=== PATIENT | female | born 1990 | race Caucasian/White ===

== ENCOUNTER → 2021-03-28 15:07 | Outpatient (CLI) | payer OTHER, SELFPAY | PROVIDERS: Visit Provider Nurse Practitioner | DX: U07.1 COVID-19 (principal) | CPT/HCPCS: C9803; U0003; U0005 ==

== ENCOUNTER 2022-12-25 17:40 | Inpatient (IN) | payer SELFPAY ==
[2022-12-25] VITALS (23 sets, daily range): BP systolic 104–139; BP diastolic 68–82; PULSE 89–111; RESP 15–18; TEMP 36.5–37.2; O2SAT 97–100; BMI 38.7
--- NOTE | 2022-12-25 17:45 | PC.NURSE ---
Lab at BS to witness type and screen
--- NOTE | 2022-12-25 17:47 | ECG_ITS ---
APPROVED REPORT Exam: Resting ECG HR:97 bpm ECG Measurements Heart Rate 97 AXES MD 150 P 55 QRSd 82 QRS 35 QT 336 T 27 QTc 391 Conclusion SINUS RHYTHM NONSPECIFIC T-WAVE ABNORMALITY BORDERLINE ECG UNCONFIRMED REPORT Electronically signed by : Byron Celestin MD 12/26/2022 11:02:00
[2022-12-25 18:05] LABS: POC Glucose,Bedside 123 (70-110)
[2022-12-25 18:10] LABS: Basophils % 0.4 % (0.1-2.0); Eosinophils # 0.2 K/mm3 (0.0-0.4); Mean Corpuscular HGB Conc 31.4 g/dL (31.8-35.4); Mean Platelet Volume 9.9 fl (7.4-10.4); Monocytes # 0.6 K/mm3 (0.1-1.0); Monocytes % 6.5 % (1.7-9.3); Neutrophils # 6.2 K/mm3 (1.8-7.8); Neutrophils % 69.2 % (37.0-80.0); Platelet Count 482 K/mm3 (142-424); Red Blood Count 2.62 M/mm3 (4.20-5.40); Red Cell Distribution Width 17.2 % (11.5-17.5); White Blood Count 8.9 K/mm3 (4.8-10.8)
[2022-12-25 18:17] LABS: Hematocrit 18.3 % (37.0-47.0); Hemoglobin 5.8 g/dL (12.2-16.2)
[2022-12-25 18:20] LABS: Alanine Aminotransferase 53 U/L (12-78); Albumin/Globulin Ratio 1.2 (1.1-1.8); Alkaline Phosphatase 67 U/L (38-126); Anion Gap 11.6 mEq/L (5-15); Aspartate Amino Transferase 46 U/L (14-36); Bilirubin,Total 0.3 mg/dl (0.2-1.3); Blood Urea Nitrogen 10 mg/dl (7-17); Calcium 8.9 mg/dl (8.4-10.2); Carbon Dioxide 24 mmol/L (22.0-30.0); Chloride 105 mmol/L (98-107); Creatinine Clearance Estimated 236 mL/min (50-200); Estimated Glomerular Filt Rate 117 ml/min (>60); GFR (African American) 142 ML/MIN (>60); Globulin 3.3 g/dL (1.3-3.2); Glucose 109 mg/dl (74-100); Potassium 3.6 mmoL/L (3.5-5.1); Sodium 137 mmol/L (136-145); Total Protein,Serum 7.3 g/dl (6.3-8.2)
[2022-12-25 18:22] LABS: Activated Partial Thrombo Time 24.1 seconds (22.8-30.6); INR 1.02 (0.9-1.1)
--- NOTE | 2022-12-25 18:22 | PC.NURSE ---
on the phone with OB
--- NOTE | 2022-12-25 18:34 | HMH.EDGENADL ---
Discharge Plan Disposition Patient Disposition: Home, Self-Care Chief Complaint: Vaginal Bleeding Clinical Impressions Clinical Impression: Menorrhagia, Symptomatic anemia Discharge ED Provider: Rafael Akers General Adult HPI General Chief complaint: Vaginal Bleeding Stated complaint: abd pain and vaginal bleeding, light headed Time Seen by Provider: 12/25/22 17:46 Mode of Arrival: Wheelchair Source of Information: Patient Limitations: No Limitations Description of Symptoms (Recalled from ER Triage Doc. by RN): Presents to ED with c/o menstruation for a year . Patient reports she is filling a mentrual pad in 30 minutes and passing clots for a week. Patient reports lightheadedness and near syncopal episodes x few days. 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 History of Present Illness HPI narrative: 32-year-old female with history of menorrhagia chronically presenting with vaginal hemorrhage. Patient states has been bleeding on and off for the better part of a year. Started bleeding more heavily about 7 to 10 days prior to arrival. Since that time, she has been saturating 1-2 pads an hour. Feels as if she is going to pass out when she stands up, appears pale, short of breath with exertion, still currently bleeding. Has not seen OB in a few years, not currently on anticoagulation or contraceptive. Related Data Home Medications Medication Instructions Recorded Confirmed No Known Home Medications 04/11/19 04/11/19 Allergies Allergy/AdvReac Type Severity Reaction Status Date / Time Penicillins Allergy Mild Verified 07/12/18 14:43 Sulfa (Sulfonamide Allergy Mild Verified 07/12/18 14:43 Antibiotics) [facility] Disclaimer: The information contained in this section may have been updated after the patient was seen, as this information can be updated by other users. Social History Smoking Status: Current every day smoker tobacco type: cigarettes packs per day: 1 second hand exposure: Yes alcohol intake: never substance use type: denies use current occupational status: unemployed Travel in the last 8 weeks: None housing: house ROS Obtained: Yes All systems reviewed & no additional complaints except as documented Physical Exam General General appearance: alert, in no apparent distress and obese Head Head exam: atraumatic and normocephalic Eye Eye exam: Present normal appearance, PERRL, EOMI and other (Conjunctival pallor) ENT ENT exam: Present mucous membranes moist Neck Neck exam: Present normal inspection, full ROM and trachea midline Respiratory Respiratory exam: Present normal lung sounds bilaterally; Absent respiratory distress, wheezes, stridor, accessory muscle use or prolonged expiratory phase Cardiovascular Cardiovascular exam: Present normal rhythm and tachycardia Abdominal Exam Abdominal exam: Present soft; Absent distention, tenderness, guarding, rebound, rigidity or normal bowel sounds External exam: Present other (Deferred by patient, given patient saturating multiple tampons and clenching together to keep from bleeding out ) Extremities Exam Extremities exam: Absent edema Neurological Exam Neurological exam: Present alert, oriented X3, CN II-XII intact and normal gait; Absent motor sensory deficit Skin Skin exam: Present warm, dry and pallor; Absent diaphoresis or erythema Medical Decision Making Medical Records Medical records reviewed: Yes I reviewed the patient's medical records. Matthew Inquiry Pt receiving controlled substance: No Matthew was queried for this patient: No Vital Signs: 12/25/22 17:42 12/25/22 18:00 Temperature 98.2 F Temperature Source Oral Pulse Rate 100 H Pulse Rate [Right] 92 H Respiratory Rate 16 18 Blood Pressure 104/69 L Blood Pressure [Right Arm] 116/71 Blood Pressure Mean 82 Blood Pressure Mean [Right Arm] 86 Blood Pressure Source [Right Arm] Automatic Cuff Blood Pressure Position [Right Arm] Sitting 02 Sat by Pu
--- NOTE | 2022-12-25 18:49 | PC.NURSE ---
Rounded on patient nothing needed at this time. Call light within reach of patient.
[2022-12-25 18:58] LABS: HCG,Quantitative < 2 mIU/ml (0-5.42)
--- NOTE | 2022-12-25 18:59 | PC.NURSE ---
lab called; first unit of blood ready
--- NOTE | 2022-12-25 18:59 | PC.NURSE ---
Lab called; 1st unit of blood ready.
--- NOTE | 2022-12-25 19:06 | PC.NURSE ---
Received blood from lab
--- NOTE | 2022-12-25 19:16 | PC.NURSE ---
1st unit of RBC transfusion starting at 75mL/hour
--- NOTE | 2022-12-25 19:36 | PC.NURSE ---
Report given to Yung CARRANZA
--- NOTE | 2022-12-25 19:50 | PC.NURSE ---
Addendum entered by Floresita Prater RN 12/25/22 20:15: RBC infusion infusing at 75ml/hr upon transfer Original Note: Yung CARRANZA took over administration of 1st unit of blood.
--- NOTE | 2022-12-25 19:50 | PC.NURSE ---
Assuming all patient care at this time. Patient is appropriate and cooperative and will be transported to the OB unit. Patient's skin is warm, pale and dry. Patient is awake and alert. Patient tolerating blood transfusion well.
--- NOTE | 2022-12-25 19:50 | PC.NURSE ---
Pt to OB with OB staff.
--- NOTE | 2022-12-25 19:52 | PC.NURSE ---
1st unit of blood continued by Yung CARRANZA
--- NOTE | 2022-12-25 20:08 | PC.NURSE ---
Patient arrived to the unit at 1954 accompanied by 1 RN and 1 SRNA, patient transported from ER to OB unit via stretcher, blood unit is infusing.
[2022-12-26] VITALS (20 sets, daily range): BP systolic 109–139; BP diastolic 56–85; PULSE 69–102; RESP 15–18; TEMP 36.8–37.2; O2SAT 97–99; BMI 40.5
[2022-12-26 02:54] LABS: Hematocrit 22.6 % (37.0-47.0)
[2022-12-26 02:58] LABS: Hemoglobin 7.7 g/dL (12.2-16.2)
--- NOTE | 2022-12-26 05:19 | PC.NURSE ---
Patient remains awake, alert, appropriate and cooperative this shift. Lung sounds are clear throughout bilaterally. Heart rate has come down to the 80s. Patient denies any shortness of breath or chest pain. Patients abdomen is soft and non tender upon palpation, bowel sounds are active in all quadrants. Patient has only changed her feminine pad x2, thus far. Patient reports improvement in vaginal bleeding. Patient plan of care will continue to remain on the course.
--- NOTE | 2022-12-26 08:09 | PC.NURSE ---
0800: Spoke with Dr Jarvis, notified of H/H post transfusion. Also notified Md of pt socioeconomic status and lack of transportation. Orders to transfuse 1 unit of blood this am and he will be in to assess patient this morning. R/V. 0805: Pt updated on POC, agreeable.
--- NOTE | 2022-12-26 09:00 | EXP.HP ---
History of Present Illness *Admission Date: 12/25/22 *Reason for visit:: Menorrhagia, anemia *History of present illness: 32-year-old female with history of menorrhagia chronically presenting with vaginal hemorrhage. Patient states has been bleeding on and off for the better part of a year. She was last seen by Dr. Hilliard in 2019. She has not been followed for this since then. Started bleeding more heavily about 7 to 10 days prior to arrival. Since that time, she has been saturating 1-2 pads an hour. Feels as if she is going to pass out when she stands up, appears pale, short of breath with exertion, still currently bleeding. Has not seen OB in a few years, not currently on anticoagulation or contraceptive. [facility] Disclaimer: The information contained in this section may have been updated after the patient was seen, as this information can be updated by other users. Medical History PCOS (polycystic ovarian syndrome) Surgical History H/O wisdom tooth extraction Family History Family history of pancreatitis Mother Breast cancer Grandmother Family history of hypertension Mother Family history of myocardial infarction Father Lung cancer Grandmother Social History Smoking Status: Current every day smoker tobacco type: cigarettes packs per day: 1 years smoked: 13 second hand exposure: Yes alcohol intake: never substance use type: marijuana current occupational status: unemployed Travel in the last 8 weeks: None adopted: No household members: family housing: house marital status: single do you feel safe at home: Yes victim of physical abuse: No victim of emotional abuse: No victim of sexual abuse: No Review of Systems Review of Systems Review of systems:: pertinent systems reviewed and negative unless documented below Meds Home Medications and Allergies Home Medications Medication Instructions Recorded Confirmed Type No Known Home Medications 04/11/19 12/26/22 History New Prescriptions to Start Prescriptions: Allergies Allergy/AdvReac Type Severity Reaction Status Date / Time Penicillins Allergy Mild Verified 07/12/18 14:43 Sulfa (Sulfonamide Allergy Mild Verified 07/12/18 14:43 Antibiotics) Exam Data for Last 24 hours Vital signs and Labs for Last 24 Hours: Temp Pulse Resp BP Pulse Ox O2 Del Method 98.5 F 86 18 133/85 98 Room Air 12/26/22 08:00 12/26/22 08:00 12/26/22 08:00 12/26/22 08:00 12/26/22 08:00 12/26/22 08:00 Laboratory Results - last 24 hr 12/25/22 17:52: POC Glucose 123 H 12/25/22 17:56: WBC 8.9, RBC 2.62 L, Hgb 5.8 L*, Hct 18.3 L*, MCV 70.0 L, MCH 22.0 L, MCHC 31.4 L, RDW 17.2, Plt Count 482 H, MPV 9.9, Neut % (Auto) 69.2, Lymph % (Auto) 22.0, [place] % (Auto) 6.5, Eos % (Auto) 2.0, Baso % (Auto) 0.4, Neut # (Auto) 6.2, Lymph # (Auto) 2.0, [place] # (Auto) 0.6, Eos # (Auto) 0.2, Baso # (Auto) 0.0, PT 11.0, INR 1.02, APTT 24.1, Sodium 137, Potassium 3.6, Chloride 105, Carbon Dioxide 24, Anion Gap 11.6, BUN 10, Creatinine 0.60, Estimated Creat Clear 236, Estimated GFR 117, Est GFR ( Amer) 142, Glucose 109 H, Calcium 8.9, Total Bilirubin 0.3, AST 46 H, ALT 53, Alkaline Phosphatase 67, Total Protein 7.3, Albumin 4.0, Globulin 3.3 H, Albumin/Globulin Ratio 1.2, HCG, Quant < 2, Blood Type A Positive, Blood Type Confirm A Positive, Antibody Screen Negative, Crossmatch (AHG) See Detail 12/26/22 02:45: Hgb 7.7 L D, Hct 22.6 L I & O for Last 24 hours: Intake & Output 12/23/22 12/24/22 12/25/22 12/26/22 11:59 11:59 11:59 11:59 Intake Total 750 / 750 Output Total 1150 / 1150 Balance -400 / -400 Weight 252 lb 2 oz Constitutional Constitutional: no acute distress and obese *Routine HEENT Exam Head: Pr
--- NOTE | 2022-12-26 09:08 | US_ITS ---
PROCEDURE INFORMATION: Exam: US Duplex Artery and Vein of the Abdominal and/or Reproductive Organs. Complete Ovaries Exam date and time: 12/26/2022 12:50 PM Age: 32 years old Clinical indication: Other: Excessive bleeding; Additional info: Excessive vaginal bleeding, menstrual hemorrhage TECHNIQUE: Imaging protocol: Real-time duplex ultrasound scan of the arterial and venous flow with color Doppler flow and spectral waveform analysis with image documentation. Complete duplex exam focused on the ovaries. Duplex exam was performed to evaluate for torsion and other vascular conditions. Total images: 841 COMPARISON: HIPRTWO CT hip RT wo con 02/14/2018 4:53 PM FINDINGS: Right ovary/adnexa: Blood flow is demonstrated to the right ovary. Left ovary/adnexa: Blood flow is demonstrated to the left ovary. IMPRESSION: No evidence of ovarian torsion. PROCEDURE INFORMATION: Exam: US Pelvis, Transvaginal Exam date and time: 12/26/2022 12:50 PM Age: 32 years old Clinical indication: Other: Excessive bleeding; Additional info: Excessive vaginal bleeding, menstrual hemorrhage LABS AND CLINICAL REPORTS: Last menstrual period start date: 12/19/2022 TECHNIQUE: Imaging protocol: Real-time transvaginal pelvic ultrasound with image documentation. Transvaginal imaging was used for better evaluation of the endometrium, adnexa, and/or cervix. COMPARISON: HIPRTWO CT hip RT wo con 02/14/2018 4:53 PM FINDINGS: Uterus: Uterus measures 11.06 cm x 8.3 cm x 5.53 cm. Endometrium is thickened at 3.7 cm. Right ovary/adnexa: Right ovary measures 2.68 cm x 3.29 cm x 2.16 cm. Right ovarian volume is 9.97 mL. No adnexal masses. Left ovary/adnexa: Left ovary measures 3.95 cm x 3.77 cm x 2.49 cm. Left ovarian volume is 19.41 mL. Intraperitoneal space: No evidence of free fluid. IMPRESSION: 1. Endometrium is thickened at 3.7 cm. 2. No evidence of free fluid. 3. No adnexal masses.
--- NOTE | 2022-12-26 09:13 | HMH.PHAINT1 ---
Pharmacy Intervention Comments: MEDICATION RECONCILIATION COMPLETE USING EXTERNAL PHARMACY FILL HISTORY (NO KNOWN HOME MEDICATIONS).
[2022-12-26 13:41] LABS: Hematocrit 26.2 % (37.0-47.0)
--- NOTE | 2022-12-26 13:44 | PC.NURSE ---
1250- pt off floor to radiology for transvaginal ultrasound 1323-pt back to room from radiology, lab at bedside for ordered lab draw.
[2022-12-26 13:53] LABS: Hemoglobin 9.1 g/dL (12.2-16.2)
--- NOTE | 2022-12-26 14:03 | PC.NURSE ---
Dr Jarvis updated on pt labs and status. Pt reports she has passed a few more clots. This nurse visualized a half dollar clot in toilet. Md will be here to speak with pt in 45 min-1hour.
--- NOTE | 2022-12-26 14:40 | EXP.ACUTE.PN ---
Subjective *Date: 12/26/22 *Time: 14:40 Interval history: She continues to have some bleeding. She says that its coming out like liquid. Her hemoglobin is 9.1 after 3 units of blood. Ultrasound shows a grossly thickened endometrium at 3.9 cm. We will keep her for now, we will start some IV estrogen to stabilize the endometrium. We will plan to do a D&C in 48 hours. Medical Exam Vital signs and Labs for Last 24 Hours: Vital Signs Temp Pulse Pulse Resp BP BP Pulse Ox 12/26/22 12:40 98.5 F 79 18 115/68 99 12/26/22 12:19 12/26/22 11:40 98.4 F 79 18 117/62 98 12/26/22 10:00 12/26/22 10:40 98.5 F 77 18 111/56 L 99 12/26/22 10:25 98.5 F 69 18 118/63 99 12/26/22 10:10 98.5 F 82 18 116/63 99 12/26/22 09:55 98.8 F 86 18 124/63 99 12/26/22 09:50 98.4 F 86 18 119/70 99 12/26/22 09:45 98.6 F 93 H 18 114/71 98 12/26/22 09:25 98.5 F 84 18 119/66 99 12/26/22 09:40 98.5 F 81 18 109/58 L 99 12/26/22 09:39 98.5 F 84 18 119/66 99 12/26/22 08:00 98.5 F 86 18 133/85 98 12/26/22 08:00 12/26/22 07:50 98 12/26/22 06:28 12/26/22 05:18 12/26/22 04:29 98.9 F 88 17 134/71 98 12/26/22 04:29 12/26/22 03:26 12/26/22 02:46 12/26/22 02:40 98.9 F 97 H 16 135/69 99 12/26/22 01:40 98.8 F 101 H 17 139/66 98 12/26/22 01:14 12/26/22 01:10 98.4 F 93 H 15 139/65 97 12/26/22 00:13 12/26/22 00:10 98.3 F 102 H 16 135/65 99 12/25/22 23:55 98.7 F 97 H 15 129/70 98 12/25/22 23:40 98.6 F 95 H 17 131/82 97 12/25/22 23:25 98.4 F 103 H 15 128/72 100 12/25/22 23:20 98.9 F 107 H 15 135/74 98 12/25/22 23:20 12/25/22 22:20 12/25/22 23:15 99.0 F 110 H 15 136/72 97 12/25/22 23:10 98.7 F 111 H 17 137/69 100 12/25/22 23:01 98.7 F 109 H 17 136/71 98 12/25/22 22:40 98.6 F 104 H 16 133/77 100 12/25/22 22:16 98.4 F 111 H 18 139/68 100 12/25/22 21:16 98.4 F 102 H 17 130/74 100 12/25/22 21:15 12/25/22 20:16 98.4 F 89 18 128/73 97 12/25/22 20:01 97.7 F 95 H 17 128/71 98 12/25/22 20:20 12/25/22 20:51 98 12/25/22 19:56 98.4 F 100 H 17 131/81 12/25/22 19:46 98.4 F 100 H 17 131/81 100 12/25/22 19:31 98.2 F 93 H 18 113/73 100 12/25/22 19:26 98.2 F 95 H 18 113/73 100 12/25/22 19:21 98.5 F 96 H 18 118/71 100 12/25/22 19:16 98.7 F 98 H 18 117/73 100 12/25/22 19:11 98.7 F 97 H 18 108/73 L 99 12/25/22 18:49 97 H 18 117/73 100 12/25/22 18:00 100 H 18 104/69 L 100 12/25/22 17:42 98.2 F 92 H 16 116/71 100 O2 Del Method 12/26/22 12:40 12/26/22 12:19 Room Air 12/26/22 11:40 12/26/22 10:00 Room Air 12/26/22 10:40 12/26/22 10:25 12/26/22 10:10 12/26/22 09:55 12/26/22 09:50 12/26/22 09:45 12/26/22 09:25 12/26/22 09:40 12/26/22 09:39 12/26/22 08:00 Room Air 12/26/22 08:00 Room Air 12/26/22 07:50 Room Air 12/26/22 06:28 Room Air 12/26/22 05:18 Room Air 12/26/22 04:29 Room Air 12/26/22 04:29 Room Air 12/26/22 03:26 Room Air 12/26/22 02:46 Room Air 12/26/22 02:40 12/26/22 01:40 12/26/22 01:14 Room Air 12/26/22 01:10 12/26/22 00:13 Room Air 12/26/22 00:10 12/25/22 23:55 12/25/22 23:40 12/25/22 23:25 12/25/22 23:20 12/25/22 23:20 Room Air 12/25/22 22:20 Room Air 12/25/22 23:15 12/25/22 23:10 12/25/22 23:01 12/25/22 22:40 12/25/22 22:16 12/25/22 21:16 12/25/22 21:15 Room Air 12/25/22 20:16 12/25/22 20:01 12/25/22 20:20 Room Air 12/25/22 20:51 Room Air 12/25/22 19:56 Room Air 12/25/22 19:46 12/25/22 19:31 12/25/22 19:26 12/25/22 19:21 12/25/22 19:16 12/25/22 19:11 12/25/22 18:49 Room Air 12/25/22 18:00 12/25/22 17:42 Room Air Intake and Output 12/26/22
--- NOTE | 2022-12-26 15:58 | PC.NURSE ---
Pt admits to increased bleeding. She states it's just coming out like pee when I go to the bathroom . Md aware. Ordered estrogen given IV to help stabilize endometrium. Pt agreeable and understands POC. Pt has rested well this shift with no c/o pain. Lungs remain CTA, BS active x4. S.o remains at bedside.
[2022-12-27 05:19] VITALS: BP 135/65; PULSE 89; RESP 15; TEMP 37; O2SAT 98
--- NOTE | 2022-12-27 05:21 | PC.NURSE ---
Patient has rested comfortably this shift. Patient is alert and oriented x4. Patient remains having scant to small amount of vaginal bleeding. Patient has denied any pain. Patient lung sound remain clear bilaterally throughout. Bowl sounds are active x4.
[2022-12-27 05:24] VITALS: BMI 405483.8
[2022-12-27 07:42] LABS: Basophils # 0.1 K/mm3 (0-0.2); Basophils % 0.4 % (0.1-2.0); Eosinophils # 0.5 K/mm3 (0.0-0.4); Hematocrit 26.9 % (37.0-47.0); Hemoglobin 9.1 g/dL (12.2-16.2); Lymphocytes # 2.6 K/mm3 (0.7-4.5); Lymphocytes % 17.2 % (10-50); Mean Corpuscular HGB Conc 33.9 g/dL (31.8-35.4); Mean Corpuscular Hemoglobin 26.1 pg (27.0-31.2); Mean Platelet Volume 9.3 fl (7.4-10.4); Monocytes # 0.7 K/mm3 (0.1-1.0); Monocytes % 4.9 % (1.7-9.3); Neutrophils # 11.2 K/mm3 (1.8-7.8); Neutrophils % 74.4 % (37.0-80.0); Platelet Count 406 K/mm3 (142-424); Red Blood Count 3.49 M/mm3 (4.20-5.40); Red Cell Distribution Width 19.2 % (11.5-17.5)
[2022-12-27 08:05] LABS: MANUAL DIFFERENTIAL MANUAL DIFFERENTIAL (MANUAL DIFF)
[2022-12-27 08:30] VITALS: BP 137/73; PULSE 83; RESP 18; TEMP 36.8; O2SAT 99
[2022-12-27 09:12] LABS: Eosinophils % 3 % (0-3); Lymphocytes % 12 % (10-50); Monocytes % 4 % (2-9); Neutrophils % 81 % (42-76); Total Cells Counted 100
[2022-12-27 09:13] LABS: Platelet Estimate Normal; RBC Morphology Normal
--- NOTE | 2022-12-27 13:21 | EXP.ACUTE.PN ---
Subjective *Date: 12/27/22 *Time: 13:21 Interval history: She is doing much better today. Her bleeding has settled. She has been receiving IV estrogen. Her hemoglobin has remained stable. She has received a total of 3 units of packed red blood cells. She denies any pain or discomfort. Medical Exam Vital signs and Labs for Last 24 Hours: Vital Signs Temp Pulse Resp BP Pulse Ox O2 Del Method 12/27/22 09:38 Room Air 12/27/22 08:30 Room Air 12/27/22 08:30 98.3 F 83 18 137/73 99 Room Air 12/27/22 07:02 Room Air 12/27/22 06:15 Room Air 12/27/22 05:19 Room Air 12/27/22 05:19 98.6 F 89 15 135/65 98 Room Air 12/27/22 04:31 Room Air 12/27/22 03:44 Room Air 12/27/22 02:50 Room Air 12/27/22 01:21 Room Air 12/27/22 00:20 Room Air 12/26/22 23:13 Room Air 12/26/22 22:12 Room Air 12/26/22 21:30 Room Air 12/26/22 20:19 98.9 F 90 17 132/73 98 Room Air 12/26/22 20:30 Room Air 12/26/22 20:22 98 Room Air 12/26/22 19:42 Room Air 12/26/22 18:30 Room Air 12/26/22 17:00 Room Air 12/26/22 14:10 Room Air Intake and Output 12/27/22 12/27/22 12/27/22 03:59 11:59 19:59 Other: Weight 251 lb 4 oz Laboratory Results - last 24 hr 12/25/22 17:56: Crossmatch (AHG) See Detail 12/26/22 13:30: Hgb 9.1 L D, Hct 26.2 L 12/27/22 07:28: WBC 15.0 H D, RBC 3.49 L D, Hgb 9.1 L, Hct 26.9 L, MCV 77.0 L, MCH 26.1 L, MCHC 33.9, RDW 19.2 H, Plt Count 406, MPV 9.3, Neut % (Auto) 74.4, Lymph % (Auto) 17.2, [place] % (Auto) 4.9, Eos % (Auto) 3.0, Baso % (Auto) 0.4, Neut # (Auto) 11.2 H, Lymph # (Auto) 2.6, [place] # (Auto) 0.7, Eos # (Auto) 0.5 H, Baso # (Auto) 0.1, Total Counted 100, Neutrophils % (Manual) 81 H, Lymphocytes % (Manual) 12, Monocytes % (Manual) 4, Eosinophils % (Manual) 3, Platelet Estimate Normal, RBC Morphology Normal I & O for Labs for Last 24 Hours: Intake & Output 12/25/22 12/26/22 12/27/22 12/28/22 11:59 11:59 11:59 11:59 Intake Total 1000 / 1000 Output Total 1550 / 1550 500 / 500 Balance -550 / -550 -500 / -500 Weight 252 lb 2 oz 251 lb 4 oz Head: Present atraumatic ENT: Present normal exam Neck: Present normal inspection Respiratory: Present normal respiratory effort; Absent accessory muscle use Assessment and Plan *Assessment and plan (1) Endometrial thickening on ultrasound: Status: Acute Category: Medical Code(s): R93.89 - Abnormal findings on diagnostic imaging of other specified body structures (2) Uterine hypertrophy: Status: Acute Category: Medical Code(s): N85.2 - Hypertrophy of uterus (3) Vaginal bleeding: Status: Acute Category: Medical Code(s): N93.9 - Abnormal uterine and vaginal bleeding, unspecified (4) Menorrhagia: Status: Acute Qualifiers: Menorrhagia type: with irregular cycle Qualified Code(s): N92.1 - Excessive and frequent menstruation with irregular cycle Category: Medical Code(s): N92.0 - Excessive and frequent menstruation with regular cycle (5) Symptomatic anemia: Status: Acute Category: Medical Code(s): D64.9 - Anemia, unspecified Plan We will plan to perform a hysteroscopy, D&C and MyoSure tomorrow. We discussed the risks of surgery that includes bleeding, infection and perforation. All questions were answered and consents were signed. She will remain n.p.o. after midnight tonight.
[2022-12-27 16:00] VITALS: BP 118/66; PULSE 82; RESP 18; TEMP 37.2; O2SAT 99
--- NOTE | 2022-12-27 18:05 | PC.NURSE ---
1600- Pt has rested well this shift with no c/o pain or increased bleeding. Reports vaginal bleeding as scant with no clots. Lungs remain CTA, bs active x4 quadrants. No edema noted. Dr Jarvis and this RN discussed risks/benefits of scheduled procedure tomorrow and consents signed. Pt agreeable to POC and has no questions.
--- NOTE | 2022-12-27 19:05 | PC.NURSE ---
Assuming all patient care at this time. Patient is awake and alert, watching TV. Patient respirations are equal and unlabored. Skin is intact, warm and pink. Patient denies any pain at this time.
[2022-12-27 20:14] VITALS: BP 130/74; PULSE 82; RESP 17; TEMP 36.9; O2SAT 97
[2022-12-27 20:15] VITALS: O2SAT 97
[2022-12-28] VITALS (15 sets, daily range): BP systolic 109–155; BP diastolic 67–97; PULSE 82–110; RESP 14–18; TEMP 36.4–36.9; O2SAT 96–99; BMI 406874.6
--- NOTE | 2022-12-28 04:47 | PC.NURSE ---
Patient remains alert and oriented x4. She has rested fair throughout the night. Patient lung sounds are clear bilaterally throughout. Patient bowel sounds are active in all 4 quadrants. Vaginal bleeding has remained scant to small amount of bleeding. Patient denies any pain.
[2022-12-28 07:46] LABS: Chloride 108 mmol/L (98-107); Potassium 3.9 mmoL/L (3.5-5.1); Sodium 138 mmol/L (136-145)
[2022-12-28 07:49] LABS: Anion Gap 9.9 mEq/L (5-15); Blood Urea Nitrogen 9 mg/dl (7-17); Calcium 8.3 mg/dl (8.4-10.2); Carbon Dioxide 24 mmol/L (22.0-30.0); Creatinine Clearance Estimated 248 mL/min (50-200); Estimated Glomerular Filt Rate 117 ml/min (>60); GFR (African American) 142 ML/MIN (>60); Glucose 101 mg/dl (74-100)
[2022-12-28 08:40] LABS: Basophils # 0.1 K/mm3 (0-0.2); Basophils % 0.5 % (0.1-2.0); Eosinophils # 0.4 K/mm3 (0.0-0.4); Eosinophils % 2.9 % (0.1-12.0); Hematocrit 27.4 % (37.0-47.0); Hemoglobin 9.3 g/dL (12.2-16.2); Mean Corpuscular HGB Conc 33.8 g/dL (31.8-35.4); Mean Corpuscular Hemoglobin 25.9 pg (27.0-31.2); Mean Corpuscular Volume 76.5 fl (81-99); Mean Platelet Volume 9.5 fl (7.4-10.4); Monocytes # 0.7 K/mm3 (0.1-1.0); Monocytes % 5.5 % (1.7-9.3); Neutrophils # 9.3 K/mm3 (1.8-7.8); Neutrophils % 69.2 % (37.0-80.0); Platelet Count 399 K/mm3 (142-424); Red Blood Count 3.59 M/mm3 (4.20-5.40); Red Cell Distribution Width 19.7 % (11.5-17.5); White Blood Count 13.5 K/mm3 (4.8-10.8)
--- NOTE | 2022-12-28 09:15 | PC.NURSE ---
Pepcid 20mg IV given for heartburn.
--- NOTE | 2022-12-28 10:09 | EXP.ACUTE.PN ---
Subjective *Date: 12/28/22 *Time: 10:09 Interval history: She is doing well this morning. Her bleeding has mostly settled. She denies any shortness of breath or calf tenderness. Medical Exam Vital signs and Labs for Last 24 Hours: Vital Signs Temp Pulse Resp BP Pulse Ox O2 Del Method O2 Flow Rate 12/28/22 08:00 Room Air 99 12/28/22 08:10 98.4 F 82 18 143/83 H 99 Room Air 12/28/22 08:30 99 Room Air 12/28/22 06:09 Room Air 12/28/22 05:00 Room Air 12/28/22 04:46 Room Air 12/28/22 04:46 97.9 F 85 14 109/67 L 98 Room Air 12/28/22 03:07 Room Air 12/28/22 02:33 Room Air 12/28/22 01:12 Room Air 12/28/22 00:00 Room Air 12/27/22 23:33 Room Air 12/27/22 22:34 Room Air 12/27/22 21:33 Room Air 12/27/22 20:15 97 Room Air 12/27/22 20:15 Room Air 12/27/22 19:20 Room Air 12/27/22 20:14 98.4 F 82 17 130/74 97 Room Air 12/27/22 17:00 Room Air 12/27/22 18:07 Room Air 12/27/22 16:00 99.0 F 82 18 118/66 99 Room Air 12/27/22 13:30 Room Air 12/27/22 11:30 Room Air Intake and Output 12/27/22 12/28/22 12/28/22 19:59 03:59 11:59 Output Total 300 / 300 Balance -300 / -300 Output: Output, Urine Amount 300 / 300 Other: Number of Unmeasured Voids 1 1 Weight 252 lb 1.789 oz Patient Weight 12/28/22 11:59 Weight 252 lb 1.789 oz Laboratory Results - last 24 hr 12/28/22 07:12: WBC 13.5 H, RBC 3.59 L, Hgb 9.3 L, Hct 27.4 L, MCV 76.5 L, MCH 25.9 L, MCHC 33.8, RDW 19.7 H, Plt Count 399, MPV 9.5, Neut % (Auto) 69.2, Lymph % (Auto) 22.0, [place] % (Auto) 5.5, Eos % (Auto) 2.9, Baso % (Auto) 0.5, Neut # (Auto) 9.3 H, Lymph # (Auto) 3.0, [place] # (Auto) 0.7, Eos # (Auto) 0.4, Baso # (Auto) 0.1, Sodium 138, Potassium 3.9, Chloride 108 H, Carbon Dioxide 24, Anion Gap 9.9, BUN 9, Creatinine 0.60, Estimated Creat Clear 248, Estimated GFR 117, Est GFR ( Amer) 142, Glucose 101 H, Calcium 8.3 L I & O for Labs for Last 24 Hours: Intake & Output 12/25/22 12/26/22 12/27/22 12/28/22 11:59 11:59 11:59 11:59 Intake Total 1000 / 1000 Output Total 1550 / 1550 1300 / 1300 300 / 300 Balance -550 / -550 -1300 / -1300 -300 / -300 Weight 252 lb 2 oz 251 lb 4 oz 252 lb 1.789 oz Constitutional: Present no acute distress and obese Head: Present normocephalic Neck: Present normal inspection Respiratory: Present normal respiratory effort; Absent accessory muscle use Assessment and Plan *Assessment and plan (1) Endometrial thickening on ultrasound: Status: Acute Category: Medical Code(s): R93.89 - Abnormal findings on diagnostic imaging of other specified body structures (2) Uterine hypertrophy: Status: Acute Category: Medical Code(s): N85.2 - Hypertrophy of uterus (3) Menorrhagia: Status: Acute Qualifiers: Menorrhagia type: with irregular cycle Qualified Code(s): N92.1 - Excessive and frequent menstruation with irregular cycle Category: Medical Code(s): N92.0 - Excessive and frequent menstruation with regular cycle (4) Symptomatic anemia: Status: Acute Category: Medical Code(s): D64.9 - Anemia, unspecified Plan She is scheduled today for a hysteroscopy D&C.
--- NOTE | 2022-12-28 11:44 | PC.NURSE ---
Pt taken to pre-op via bed and staff x2.
--- NOTE | 2022-12-28 12:10 | P.PNANES_ITS ---
[facility] Disclaimer: The information contained in this section may have been updated after the patient was seen, as this information can be updated by other users. Medical History PCOS (polycystic ovarian syndrome) Surgical History H/O wisdom tooth extraction Family History Family history of pancreatitis Mother Breast cancer Grandmother Family history of hypertension Mother Family history of myocardial infarction Father Lung cancer Grandmother Social History Smoking Status: Current every day smoker tobacco type: cigarettes packs per day: 1 years smoked: 13 second hand exposure: Yes alcohol intake: never substance use type: marijuana current occupational status: unemployed Travel in the last 8 weeks: None adopted: No household members: family housing: house marital status: single do you feel safe at home: Yes victim of physical abuse: No victim of emotional abuse: No victim of sexual abuse: No [facility] Anesthesia Checklist Patient Identification Patient Identification: Arm Band and Verbal (Name & ) Structural Data Admitted From: Inpatient Planned Operative Procedure/s: Hysteroscopy, D&C, Novasure Consent for Planned Operative Procedure(s) Verified: Yes Verified Documents: Surgical Consent and History and Physical NPO Status Verified Time NPO: 21:00 Chart Verification Results Verified: CBC, BMP, Type and Screen, ECG and HCG Additional verifications Patient : No Anesthesia Reactions: No Hx Blood Transfusions: Yes Blood Transfusion Reaction: No Cephalosporin Allergy: No Cardiovascular Assessment Heart Sounds: S1 & S2 Pulse Rhythm: Irregular Peripheral Edema: No Airway Assessment Mallampati Score:: Class II C-Spine Mobility Assessed: Yes TMJ Mobility Assessed: Yes Dentition: Poor Dentition (Nothing loose per pt.) Neurological Assessment Level of Consciousness: Awake, Alert and Appropriate Hx Seizures: No Numbness or tingling in extremities: No Anesthesia Plan Anesthesia Risk discussed: Yes Anesthesia Plan: Verified ASA Class: III Anesthesia Type: General
--- NOTE | 2022-12-28 13:32 | P.OP_ITS ---
Date of procedure: 12/28/22 Pre-op Diagnosis:: Menorrhagia, anemia, thickened endometrium Post-op Diagnosis:: Menorrhagia, anemia, thickened endometrium, polyps, polypoid fibroid Procedure performed:: Hysteroscopy, dilation and curettage, evacuation of endometrial cavity with [place] suction, MyoSure. Surgeon:: Arnold Jarvis MD [employer] RE[employer]ER:: Other (Amie Dwyer) Anesthesia: LMA Estimated blood loss (mL): 150 Clinical Note:: She is a 32-year-old lady who was admitted with extremely heavy bleeding as well as severe anemia requiring transfusion. Ultrasound showed that the endometrium was 3.7 cm thick. As result for that she was offered hysteroscopy, D&C and MyoSure. Operative findings:: She had what appeared to be multiple small polyps within the endometrial cavity as well as a pedunculated fibroid. The endometrium was lush as well. Operative note:: She was taken the operating room where LMA anesthesia was found be adequate. She was prepped and draped in the normal sterile fashion lithotomy position. A weighted speculum is placed in vagina and the antilipid the cervix was grasped with a tenaculum. The cervix was dilated to approximately 6 mm. Then using a MyoSure device to enter the uterine cavity with saline as a distending media. The findings were as previously dictated. I then attempted to remove some of the tissue with the MyoSure but I then changed to a Nando suction device with a 9 mm curved [place] suction curette. The endometrial contents were then evacuated with the suction curette. I then performed a gentle curettage. I then reinserted the MyoSure device and used this to remove the rest of the excess tissue within the endometrium. This was followed by using the N[place] suction device once more. No tissue then was returned. I then injected 30 cc of 0.25% ropivacaine at the 3:00, 5:00, 7:00 and 9:00 positions of the cervix. She tolerated seizure well and was taken the recovery room in excellent condition. All sponge, instrument and needle counts were correct. The estimated blood loss was less than 150 cc. Condition: stable Disposition: PACU Specimens:: Endometrial curettings Complications:: None
--- NOTE | 2022-12-28 14:02 | P.PNANES_ITS ---
[facility] Anesthesia Record Part I Anesthesia Record I Intake, IV Amount: 300 Hydration: Adequate Estimated blood loss (mL): 150 Urine output (mL): 0 Blood Products used (#): none Blood Pressure: 153/97 SaO2: 96 Pulse Rate: 96 Airway Patency: Patent Respiratory Rate: 16 Temperature: 97.6 F Patient is:: Awake (Talking), Drowsy, Mask O2 and Stable Stable to PACU at:: 13:42
--- NOTE | 2022-12-28 14:10 | PC.NURSE ---
Pt returned to floor from PACU via bed and O.R. staff x2. V/S stable, lungs remain clear. #20 RAC, Saline Locked. Scant amt of bleeding on peripad. Denies pain. Given ice chips. Hoping to go home this afternoon. Sig other at bs attentive to pt's needs.
--- NOTE | 2022-12-28 15:14 | PC.NURSE ---
Family x3 at bs visiting.
--- NOTE | 2022-12-28 16:02 | SW/DCPLANNER ---
[facility] Resource list and [employer] information has been provided to this patient by OB staff (Leidy).
--- NOTE | 2022-12-28 17:01 | PC.NURSE ---
here to see pt. Order received to discharge home and have pt call for follow up appointment in 2wks. R/V
--- NOTE | 2022-12-28 17:04 | EXP.DC.SUM ---
General Admission date:: 12/25/22 Discharge date: 12/28/22 HPI HPI HPI: 32-year-old female with history of menorrhagia chronically presenting with vaginal hemorrhage. Patient states has been bleeding on and off for the better part of a year. She was last seen by Dr. Hilliard in 2019. She has not been followed for this since then. Started bleeding more heavily about 7 to 10 days prior to arrival. Since that time, she has been saturating 1-2 pads an hour. Feels as if she is going to pass out when she stands up, appears pale, short of breath with exertion, still currently bleeding. Has not seen OB in a few years, not currently on anticoagulation or contraceptive. Hospital Course Hospital Course Hospital Course: She was admitted to hospital and received a total of 3 units of packed red blood cells. She was then taken today for a hysteroscopy, D&C and MyoSure. There was copious tissue within the endometrial cavity as well as possible fibroids and polyps. We will await the results of her pathology. Her bleeding has settled. We will plan to send her home to follow-up with me in approximately 2 weeks time. She will continue with iron tablets. We have called this in for her. We will see her back in 2 weeks. We will review her pathology at that time. Exam Data for Last 24 hours Vital signs and Labs for Last 24 Hours: Temp Pulse Resp BP Pulse Ox O2 Del Method O2 Flow Rate 98.3 F 82 18 128/72 96 Room Air 4 12/28/22 14:58 12/28/22 16:13 12/28/22 16:13 12/28/22 16:13 12/28/22 16:13 12/28/22 16:13 12/28/22 13:37 Laboratory Results - last 24 hr 12/28/22 07:12: WBC 13.5 H, RBC 3.59 L, Hgb 9.3 L, Hct 27.4 L, MCV 76.5 L, MCH 25.9 L, MCHC 33.8, RDW 19.7 H, Plt Count 399, MPV 9.5, Neut % (Auto) 69.2, Lymph % (Auto) 22.0, [place] % (Auto) 5.5, Eos % (Auto) 2.9, Baso % (Auto) 0.5, Neut # (Auto) 9.3 H, Lymph # (Auto) 3.0, [place] # (Auto) 0.7, Eos # (Auto) 0.4, Baso # (Auto) 0.1, Sodium 138, Potassium 3.9, Chloride 108 H, Carbon Dioxide 24, Anion Gap 9.9, BUN 9, Creatinine 0.60, Estimated Creat Clear 248, Estimated GFR 117, Est GFR ( Amer) 142, Glucose 101 H, Calcium 8.3 L I & O for Last 24 hours: Intake & Output 12/26/22 12/27/22 12/28/22 12/29/22 11:59 11:59 11:59 11:59 Intake Total 1000 / 1000 300 / 300 Output Total 1550 / 1550 1300 / 1300 300 / 300 Balance -550 / -550 -1300 / -1300 -300 / -300 300 / 300 Weight 252 lb 2 oz 251 lb 4 oz 252 lb 1.789 oz Constitutional Constitutional: no acute distress and morbidly obese *Routine HEENT Exam Head: Present normocephalic *Routine Neck Exam Neck: Present supple Results Data Completed and Pending Labs on day of discharge: Labs from last 24 hours 12/28/22 07:12 WBC 13.5 H RBC 3.59 L Hgb 9.3 L Hct 27.4 L MCV 76.5 L MCH 25.9 L MCHC 33.8 RDW 19.7 H Plt Count 399 MPV 9.5 Neut % (Auto) 69.2 Lymph % (Auto) 22.0 [place] % (Auto) 5.5 Eos % (Auto) 2.9 Baso % (Auto) 0.5 Neut # (Auto) 9.3 H Lymph # (Auto) 3.0 [place] # (Auto) 0.7 Eos # (Auto) 0.4 Baso # (Auto) 0.1 Sodium 138 Potassium 3.9 Chloride 108 H Carbon Dioxide 24 Anion Gap 9.9 BUN 9 Creatinine 0.60 Estimated Creat Clear 248 Estimated GFR 117 Est GFR ( Amer) 142 Glucose 101 H Calcium 8.3 L DS: Diagnosis Discharge Diagnosis (1) Endometrial thickening on ultrasound: Status: Acute Code(s): R93.89 - Abnormal findings on diagnostic imaging of other specified body structures (2) Uterine hypertrophy: Status: Acute Code(s): N85.2 - Hypertrophy of uterus (3) Menorrhagia: Status: Acute Code(s): N92.0 - Excessive and frequent menstruation with regular cycle Qualifiers: Menorrhagia type: with irregular cycle Qualified Code(s): N92.1 - Excessive and frequent menstruation with irregular cycle (4) Symptomatic anemia: Status: Acute Code(s): D64.9 - Anemia, unspecified Meds Home Medi
--- NOTE | 2022-12-29 13:06 | EXP.ANES.II ---
[facility] Anesthesia Record Part II Anesthesia Record Part II Discharge Time: 14:07 Destination: Surgical Day Care (OP Surgery) PACU nurse assessment reviewed?: Yes Patient Condition:: Good Anesthesia Complications:: None Swallowing reflex intact?: Yes Airway Patency: Patent Cyanosis?: No Blood Pressure: 136/86 SaO2: 97 Respiratory Rate: 16 Pulse Rate: 106 Temperature: 97.6 F Mental Status: Alert & Oriented Pain level:: 0 Nausea and/or vomitting:: None Intake, IV Amount: 300 Hydration: Adequate
[2022-12-29 13:07] VITALS: BP 136/86; PULSE 106; RESP 16; O2SAT 97
[2022-12-29 13:11] VITALS: TEMP 36.4
== END 2022-12-28 17:13 | disposition home or self-care (01) | DRG 744 ==
LOC: ER 17:58 → OB 18:41
PROVIDERS: Admitting Provider Nurse Practitioner Obstetrics & Gynecology; Emergency Provider Emergency Medicine; Visit Provider Nurse Practitioner Obstetrics & Gynecology
PROC: 0UDB8ZZ Extraction of Endometrium, Via Natural or Artificial Opening Endoscopic (ICD-10-PCS; CPT 58558; principal; 2022-12-28 12:30)
DX: N92.1 Excessive and frequent menstruation with irregular cycle (principal); D62 Acute posthemorrhagic anemia; N93.9 Abnormal uterine and vaginal bleeding, unspecified; F17.210 Nicotine dependence, cigarettes, uncomplicated; N85.2 Hypertrophy of uterus; R93.89 Abnormal findings on diagnostic imaging of other specified body structures
CPT/HCPCS: 58558; 36415; 76830; 80048; 80053; 82962; 84702; 85007; 85014; 85018; 85025; 85610; 85730; 86850; 93005; 94761; G0283; J1050; J2405; P9016